=== PATIENT | female | born 1965 | race African-American/Black ===

== ENCOUNTER 2017-02-25 11:44 | Emergency (ER) | payer OTHER ==
[~2017-02-25] VITALS: Ht 162.6 cm; Wt 84.8 kg
[~2017-02-25 11:44] MED LIST: ALBUTEROL17 G1 IH; CIPRO PO; FLEXERIL10 M1 PO; IRON325 ( 651 PO; KETOPROFEN PO; LEVAQUIN PO; SINGULAIR PO; VICODIN PO; VOLTAREN75 MG PO
== END 2017-02-25 13:03 | disposition home or self-care (01) ==
LOC: CED 11:44
DX: N90.7 Vulvar cyst (principal); N76.4 Abscess of vulva; Z90.710 Acquired absence of both cervix and uterus; J44.9 Chronic obstructive pulmonary disease, unspecified; J45.909 Unspecified asthma, uncomplicated
CPT/HCPCS: 56405; 99283